=== PATIENT | female | born 1995 | race Caucasian/White ===

== ENCOUNTER → 2023-12-13 13:17 | Outpatient (REF) | payer BC, SELFPAY | LOC: PNTC 13:17 | PROVIDERS: ATTENDING PHYSICIAN Obstetrics & Gynecology | DX: Q24.0 Dextrocardia (principal) | CPT/HCPCS: 76811 ==

== ENCOUNTER → 2024-01-30 08:37 | Outpatient (REF) | payer BC, SELFPAY | LOC: PNTC 08:37 | PROVIDERS: ATTENDING PHYSICIAN Obstetrics & Gynecology | DX: O35.5XX0 Maternal care for (suspected) damage to fetus by drugs, not applicable or unspecified (principal); O99.419 Diseases of the circulatory system complicating pregnancy, unspecified trimester | CPT/HCPCS: 76816 ==

== ENCOUNTER → 2024-02-09 10:56 | Outpatient (REF) | payer BC, SELFPAY | LOC: REG 10:56 | PROVIDERS: ATTENDING PHYSICIAN Obstetrics & Gynecology | DX: Z34.90 Encounter for supervision of normal pregnancy, unspecified, unspecified trimester (principal) | CPT/HCPCS: 36415; 86850; 86900; 86901; J2790 ==

== ENCOUNTER → 2024-03-12 09:12 | Outpatient (REF) | payer BC, SELFPAY | LOC: PNTC 09:12 | PROVIDERS: ATTENDING PHYSICIAN Obstetrics & Gynecology | DX: Z34.90 Encounter for supervision of normal pregnancy, unspecified, unspecified trimester (principal) | CPT/HCPCS: 76816 ==

== ENCOUNTER 2024-04-30 23:46 | Inpatient (IN) | payer BC, SELFPAY ==
[2024-04-30 23:57] VITALS: BMI 26.9
[2024-05-01 00:13] LABS: % Basophils 0.7 % (0-2); % Immature Granulocytes 1.9 % (0-0.5); % Monocytes 6.9 % (1.7-9.3); % Neutrophils 67.5 % (42.2-75.2); Absolute Basophils 0.1 10^3/uL (0-0.2); Absolute Eosinophils 0.2 10^3/uL (0-0.7); Absolute Immature Granulocytes 0.3 10^3/uL (0-0.05); Absolute Lymphocytes 3.9 10^3/uL (1.2-3.4); Absolute Monocytes 1.2 10^3/uL (0.1-0.6); Hematocrit 30.7 % (37.0-47.0); Hemoglobin 10.9 g/dL (12.0-16.0); Mean Corp Hgb Conc. 35.5 g/dL (33.0-37.0); Mean Corpuscular Hgb 34.8 pg (27.0-31.0); Mean Corpuscular Volume 98.1 fL (81.0-99.0); Mean Platelet Volume 11.4 fL (7.4-10.4); Platelet Count 215 10^3/uL (130-400); Red Blood Cell Count 3.13 10^6/uL (4.20-5.40); Red Cell Dist. Width 17.4 % (11.5-14.5); White Blood Cell Count 17.7 10^3/uL (4.8-10.8)
[2024-05-01 00:20] VITALS: BP 127/67
[2024-05-01] MEDS: METHERGINE INJECTION 0.200000000000000011 MG IM (00:32)
[2024-05-01] MEDS: PITOCIN 30 UNITS/NSS 500 ML IV (00:33)
[2024-05-01] MEDS: LR 1000 IV (00:34)
[2024-05-01] MEDS: MOTRIN 600 MG PO ×3 (03:23→20:07)
[2024-05-01] MEDS: PRENATAL PLUS 1 TABLET PO (07:40)
[2024-05-01] MEDS: ZOLOFT 50 MG PO (07:40)
[2024-05-01] MEDS: SENOKOT-S 1 TABLET PO (13:15)
[2024-05-01] MEDS: TYLENOL 650 MG PO (13:15)
[2024-05-02] MEDS: MOTRIN 600 MG PO ×2 (03:33→09:44)
[2024-05-02] MEDS: TYLENOL 650 MG PO ×2 (03:34→09:44)
[2024-05-02 05:39] LABS: Hematocrit 26.8 % (37.0-47.0); Hemoglobin 9.6 g/dL (12.0-16.0)
[2024-05-02] MEDS: PRENATAL PLUS 1 TABLET PO (09:43)
[2024-05-02] MEDS: SENOKOT-S 1 TABLET PO (09:43)
[2024-05-02] MEDS: FEOSOL 325 MG PO (09:44)
[2024-05-02] MEDS: ZOLOFT 50 MG PO (09:44)
[2024-05-04 16:30] LABS: Syphilis/T. pallidum Ab Reflex Negative (Negative)
== END 2024-05-02 12:33 | disposition home or self-care (01) | DRG 807 ==
LOC: LDRP 23:46
PROVIDERS: Obstetrics & Gynecology; ADMITTING PHYSICIAN Obstetrics & Gynecology
PROC: 10E0XZZ Delivery of Products of Conception, External Approach (ICD-10-PCS; 2024-04-30)
DX: O42.02 Full-term premature rupture of membranes, onset of labor within 24 hours of rupture (principal); Z37.0 Single live birth; Z3A.40 40 weeks gestation of pregnancy; O48.0 Post-term pregnancy; O69.1XX0 Labor and delivery complicated by cord around neck, with compression, not applicable or unspecified; M41.9 Scoliosis, unspecified; O99.02 Anemia complicating childbirth; D50.9 Iron deficiency anemia, unspecified; O99.344 Other mental disorders complicating childbirth; F32.A Depression, unspecified; Z83.3 Family history of diabetes mellitus; O99.824 Streptococcus B carrier state complicating childbirth; O62.3 Precipitate labor
CPT/HCPCS: 36415; 85014; 85018; 85025; 86780; 86850; 86870; 86900; 86901